=== PATIENT | female | born 1995 | race Caucasian/White ===

== ENCOUNTER 2024-03-30 15:21 | Emergency (ER) | payer OTHER ==
[~2024-03-30] VITALS: Ht 160 cm; Wt 81.8 kg
[2024-03-30 16:03] VITALS: BP 139/84; PULSE 84; RESP 18; TEMP 97.9
[2024-03-30 16:25] LABS: APPEARANCE,URINE HAZY (CLEAR); BILIRUBIN,URINE NEGATIVE (NEGATIVE); COLOR,URINE LIGHT YELLOW (YELLOW); GLUCOSE, URINE (UA) NEGATIVE (NEGATIVE); KETONES,URINE NEGATIVE (NEGATIVE); LEUKOCYTE ESTERASE ,URINE LARGE (NEGATIVE); NITRATE,URINE NEGATIVE (NEGATIVE); OCCULT BLOOD,URINE MODERATE (NEGATIVE); PROTEIN,URINE NEGATIVE (NEGATIVE); SPECIFIC GRAVITIY, URINE 1.011 (1.003-1.030); UROBILINOGEN,URINE <=1.0 mg/dL (<=1.0)
[2024-03-30 16:27] LABS: BASOPHILS % (AUTO) 0.3 % (0.0-2.0); EOSINOPHILS % (AUTO) 2.7 % (1.0-6.0); HEMATOCRIT 41.1 % (36-46); HEMOGLOBIN 13.8 g/dL (12.0-16.0); LYMPHOCYTES # (AUTO) 2.8 K/uL (1.0-4.8); LYMPHOCYTES % (AUTO) 34.6 % (22.0-44.0); MEAN CORPUSCULAR HGB CONC 33.6 G/dL (31.0-37.0); MEAN CORPUSCULAR VOLUME 93 fL (80-100); MONOCYTES # (AUTO) 0.5 K/uL (0.1-1.0); MONOCYTES % (AUTO) 6.6 % (2.0-9.0); NEUTROPHILS # (AUTO) 4.6 K/uL (1.8-7.7); NEUTROPHILS % (AUTO) 55.8 % (40.0-70.0); PLATELET COUNT (AUTO) 278 K/uL (150-450); RED BLOOD CELL COUNT(AUTO) 4.44 MIL/uL (4.00-5.20); RED CELL DISTRIBUTION WIDTH 12.5 % (11.5-14.5); WHITE BLOOD COUNT (AUTO) 8.2 K/uL (4.5-11.0)
[2024-03-30 16:37] LABS: ANION GAP 9 mmol/L (8-16); CALCIUM, TOTAL 9.9 mg/dL (8.8-10.5); CARBON DIOXIDE 25 mmol/L (22-29); CHLORIDE 104 mmol/L (98-107); GLOMERULAR FILTR. RATE CALC > 60 mL/min (>60); GLUCOSE,RANDOM 95 mg/dL (70-110); POTASSIUM 3.6 mmol/L (3.5-5.1); SODIUM SERUM 138 mmol/L (136-145); UREA NITROGEN, BLOOD 9 mg/dL (7-18)
[2024-03-30 16:48] LABS: ALANINE AMINOTRANSFERASE 35 U/L (12-78); ALBUMIN 4.1 g/dL (3.4-5.0); ALKALINE PHOSPHATASE 84 U/L (46-116); ASPARTATE AMINOTRANSFERASE 21 U/L (15-37); BILIRUBIN,TOTAL 0.2 mg/dL (0.1-1.0); HCG,QUANTITATIVE < 1 mIU/mL (0-6); TOTAL PROTEIN, SERUM 8.3 g/dL (6.4-8.2)
[2024-03-30 16:57] LABS: BACTERIA,URINE Few /HPF (None Seen); WBC,URINE 51-100 /HPF (0-5)
== END 2024-03-30 20:56 | disposition left against medical advice (07) ==
LOC: EMS 15:22
DX: N39.0 Urinary tract infection, site not specified (principal); R10.31 Right lower quadrant pain; Z98.890 Other specified postprocedural states
CPT/HCPCS: 80053; 81001; 84702; 85025; 87086; 87186; 99283

== ENCOUNTER 2024-06-09 21:44 | Emergency (ER) | payer OTHER ==
[~2024-06-09] VITALS: Ht 154.9 cm; Wt 68.2 kg
[2024-06-09 22:09] VITALS: TEMP 97.9
[2024-06-09] MEDS: SODIUM CHLORIDE 0.9% 1,000 ML IV ONE (22:55)
[2024-06-09 23:00] LABS: BASOPHILS % (AUTO) 0.3 % (0.0-2.0); HEMATOCRIT 37.7 % (36-46); HEMOGLOBIN 12.6 g/dL (12.0-16.0); LYMPHOCYTES # (AUTO) 2.4 K/uL (1.0-4.8); LYMPHOCYTES % (AUTO) 28.1 % (22.0-44.0); MEAN CORPUSCULAR HGB CONC 33.3 G/dL (31.0-37.0); MEAN CORPUSCULAR VOLUME 93 fL (80-100); MONOCYTES # (AUTO) 0.6 K/uL (0.1-1.0); MONOCYTES % (AUTO) 7.1 % (2.0-9.0); NEUTROPHILS # (AUTO) 5.3 K/uL (1.8-7.7); NEUTROPHILS % (AUTO) 62.5 % (40.0-70.0); PLATELET COUNT (AUTO) 274 K/uL (150-450); RED BLOOD CELL COUNT(AUTO) 4.05 MIL/uL (4.00-5.20); RED CELL DISTRIBUTION WIDTH 12.7 % (11.5-14.5); WHITE BLOOD COUNT (AUTO) 8.6 K/uL (4.5-11.0)
[2024-06-09 23:49] LABS: APPEARANCE,URINE HAZY (CLEAR); BILIRUBIN,URINE NEGATIVE (NEGATIVE); COLOR,URINE LIGHT YELLOW (YELLOW); GLUCOSE, URINE (UA) NEGATIVE (NEGATIVE); KETONES,URINE NEGATIVE (NEGATIVE); LEUKOCYTE ESTERASE ,URINE LARGE (NEGATIVE); NITRATE,URINE NEGATIVE (NEGATIVE); OCCULT BLOOD,URINE LARGE (NEGATIVE); PH,URINE 6.5 (5.0-8.0); PROTEIN,URINE 30-70 mg/dL (NEGATIVE); SPECIFIC GRAVITIY, URINE 1.009 (1.003-1.030); UROBILINOGEN,URINE <=1.0 mg/dL (<=1.0)
[2024-06-09 23:54] LABS: BACTERIA,URINE Moderate /HPF (None Seen); SQUAMOUS EPITHELIAL CELL,UR Few /LPF (None Seen); WBC,URINE 51-100 /HPF (0-5)
[2024-06-09] MEDS: KETOROLAC TROMETHAMINE 30 MG/ML VIAL IVP ONE (23:58)
[2024-06-10] MEDS: CefTRIAXone 1 GM/DEXTROSE 50 ML IV ONE (00:03)
[2024-06-10 00:08] LABS: ANION GAP 7 mmol/L (8-16); CARBON DIOXIDE 27 mmol/L (22-29); CHLORIDE 104 mmol/L (98-107); CREATININE 0.85 mg/dL (0.60-1.30); GLOMERULAR FILTR. RATE CALC > 60 mL/min (>60); GLUCOSE,RANDOM 105 mg/dL (70-110); POTASSIUM 3.6 mmol/L (3.5-5.1); SODIUM SERUM 138 mmol/L (136-145); UREA NITROGEN, BLOOD 17 mg/dL (7-18)
[2024-06-10 01:30] VITALS: BP 138/72; PULSE 82; RESP 20
[2024-06-10] MEDS: OxyCODONE HCL/ACETAMINOPHEN 5-325 MG TABLET PO ONE (01:35)
[2024-06-10] MEDS ORDERED: CIPR500T10 PO (01:36)
== END 2024-06-10 01:55 | disposition home or self-care (01) ==
LOC: EMS 21:49
DX: N39.0 Urinary tract infection, site not specified (principal); Z87.440 Personal history of urinary (tract) infections; Z98.890 Other specified postprocedural states
CPT/HCPCS: 99284; 96361; 96375; 80048; 81001; 84702; 85025; 36415; 87086; 87186; 96365; J1885; J0696

== ENCOUNTER 2024-07-05 09:27 | Inpatient (IN) | payer OTHER ==
[~2024-07-05] VITALS: Ht 162.6 cm; Wt 75.0 kg
[~2024-07-05 09:27] MED LIST: CIPR250T6 PO
[2024-07-05] MEDS ORDERED: 0.9% SODIUM CHLORIDE 10 ML SYRINGE IVP PRN (09:45)
[2024-07-05 10:21] LABS: BASOPHILS % (AUTO) 0.2 % (0.0-2.0); EOSINOPHILS % (AUTO) 0 % (1.0-6.0); HEMOGLOBIN 11.3 g/dL (12.0-16.0); LYMPHOCYTES # (AUTO) 0.4 K/uL (1.0-4.8); LYMPHOCYTES % (AUTO) 3.9 % (22.0-44.0); MEAN CORPUSCULAR HEMOGLOBIN 31.3 pg (26.0-34.0); MEAN CORPUSCULAR HGB CONC 34.2 G/dL (31.0-37.0); MEAN CORPUSCULAR VOLUME 92 fL (80-100); MONOCYTES # (AUTO) 0.7 K/uL (0.1-1.0); MONOCYTES % (AUTO) 6.5 % (2.0-9.0); NEUTROPHILS # (AUTO) 9.8 K/uL (1.8-7.7); PLATELET COUNT (AUTO) 196 K/uL (150-450); RED BLOOD CELL COUNT(AUTO) 3.59 MIL/uL (4.00-5.20); RED CELL DISTRIBUTION WIDTH 12.3 % (11.5-14.5); WHITE BLOOD COUNT (AUTO) 10.9 K/uL (4.5-11.0)
[2024-07-05 10:24] LABS: ANION GAP 12 mmol/L (8-16); CALCIUM, TOTAL 8.4 mg/dL (8.8-10.5); CARBON DIOXIDE 22 mmol/L (22-29); CHLORIDE 102 mmol/L (98-107); CREATININE 0.87 mg/dL (0.60-1.30); GLOMERULAR FILTR. RATE CALC > 60 mL/min (>60); GLUCOSE,RANDOM 128 mg/dL (70-110); POTASSIUM 3.1 mmol/L (3.5-5.1); SODIUM SERUM 136 mmol/L (136-145); UREA NITROGEN, BLOOD 13 mg/dL (7-18)
[2024-07-05] MEDS: CEFEPIME HCL 1 GM in DEXTROSE 5%-WATER 50 ML IV ONE (10:29)
[2024-07-05] MEDS: SODIUM CHLORIDE 0.9% 2,100 ML IV ONE (10:29)
[2024-07-05] MEDS: MORPHINE SULFATE 2 MG/ML SYRINGE IVP ONE ×2 (10:29→14:25)
[2024-07-05 10:32] LABS: TROPONIN I-HIGH SENSITIVITY Less Than 4 ng/L (<51)
[2024-07-05 10:35] LABS: ALANINE AMINOTRANSFERASE 20 U/L (12-78); ALBUMIN 2.9 g/dL (3.4-5.0); ALKALINE PHOSPHATASE 70 U/L (46-116); ASPARTATE AMINOTRANSFERASE 18 U/L (15-37); BILIRUBIN,TOTAL 0.8 mg/dL (0.1-1.0); HCG,QUANTITATIVE 2 mIU/mL (0-6); TOTAL PROTEIN, SERUM 7.5 g/dL (6.4-8.2)
[2024-07-05 10:36] LABS: NEUTROPHILS % (AUTO) 89.4 % (40.0-70.0)
[2024-07-05 10:43] LABS: B-TYPE NATRIURETIC PEPTIDE 17 pg/mL (0-100)
[2024-07-05 10:51] LABS: APPEARANCE,URINE HAZY (CLEAR); BILIRUBIN,URINE NEGATIVE (NEGATIVE); COLOR,URINE YELLOW (YELLOW); GLUCOSE, URINE (UA) NEGATIVE (NEGATIVE); LEUKOCYTE ESTERASE ,URINE LARGE (NEGATIVE); NITRATE,URINE POSITIVE (NEGATIVE); OCCULT BLOOD,URINE MODERATE (NEGATIVE); PROTEIN,URINE 30-70 mg/dL (NEGATIVE); SPECIFIC GRAVITIY, URINE 1.031 (1.003-1.030); UROBILINOGEN,URINE <=1.0 mg/dL (<=1.0)
[2024-07-05] MEDS ORDERED: IOHEXOL 350 MG/ML 100 ML VIAL ONE (10:52)
[2024-07-05] MEDS ORDERED: SODIUM CHLORIDE 0.9% 100 ML ONE (10:52)
[2024-07-05 11:11] LABS: BACTERIA,URINE Many /HPF (None Seen); SQUAMOUS EPITHELIAL CELL,UR Moderate /LPF (None Seen); WBC,URINE 51-100 /HPF (0-5)
[2024-07-05] MEDS: POTASSIUM CHLORIDE 20 MEQ ER TABLET PO ONE (11:26)
[2024-07-05] MEDS: ACETAMINOPHEN 1000 MG/ISO-OSM 100 ML IV ONE (18:28)
[2024-07-05] MEDS ORDERED: MAGNESIUM HYDROXIDE SUSPENSION 30 ML UDCUP PO PRN (20:00)
[2024-07-05] MEDS ORDERED: ZOLPIDEM TARTRATE 5 MG TABLET PO PRN ×2 (20:00→22:30)
[2024-07-05] MEDS ORDERED: BISACODYL 10 MG RECTAL RECTAL SUPPOSITORY PR PRN (20:00)
[2024-07-05] MEDS ORDERED: ONDANSETRON HCL 4 MG/2 ML VIAL IVP PRN ×2 (20:00→22:30)
[2024-07-05] MEDS: SODIUM CHLORIDE 0.9% 1,000 ML IV SCH (21:15)
[2024-07-05] MEDS: CefTRIAXone 1 GM/DEXTROSE 50 ML IV SCH (21:15)
[2024-07-05] MEDS ORDERED: ALBUTEROL SULFATE 2.5 MG/0.5 ML NEB SOLUTION NEB PRN (22:30)
[2024-07-05] MEDS ORDERED: IPRATROPIUM BROMIDE 0.5 MG/2.5 ML NEB SOLUTION NEB PRN (22:30)
[2024-07-05 22:31] VITALS: BP 115/66; PULSE 107; RESP 20; TEMP 98.7
[2024-07-05] MEDS: ACETAMINOPHEN 325 MG TABLET PO PRN (22:56)
[2024-07-05] MEDS: MORPHINE SULFATE 2 MG/ML SYRINGE IVP PRN (22:57)
[2024-07-06] MEDS ORDERED: HEPARIN SODIUM,PORCINE 5,000 UNITS/ML VIAL SQ SCH
[2024-07-06] MEDS: HEPARIN SODIUM,PORCINE 5,000 UNITS/ML VIAL SQ SCH (01:21)
[2024-07-06 03:46] VITALS: BP 97/50; PULSE 71; RESP 20; TEMP 97.6
[2024-07-06 07:59] LABS: ANION GAP 13 mmol/L (8-16); CALCIUM, TOTAL 8.2 mg/dL (8.8-10.5); CARBON DIOXIDE 21 mmol/L (22-29); CHLORIDE 104 mmol/L (98-107); CREATININE 0.73 mg/dL (0.60-1.30); GLOMERULAR FILTR. RATE CALC > 60 mL/min (>60); GLUCOSE,RANDOM 91 mg/dL (70-110); POTASSIUM 3.6 mmol/L (3.5-5.1); SODIUM SERUM 138 mmol/L (136-145); UREA NITROGEN, BLOOD 8 mg/dL (7-18)
[2024-07-06 08:00] VITALS: BP 102/64; PULSE 95; RESP 20; TEMP 98.4
[2024-07-06] MEDS: PANTOPRAZOLE SODIUM 40 MG/VIAL IVP SCH (08:38)
[2024-07-06] MEDS ORDERED: PANTOPRAZOLE SODIUM 40 MG DR TABLET PO SCH (09:00)
[2024-07-06] MEDS: DOCUSATE SODIUM 100 MG/10 ML LIQUID UDCUP PO SCH (09:00)
[2024-07-06 11:45] VITALS: BP 103/59; PULSE 82; RESP 20; TEMP 98.1
[2024-07-06 20:14] VITALS: BP 105/58; PULSE 83; RESP 18; TEMP 98.5
[2024-07-07] VITALS (8 sets, daily range): BP systolic 89–117; BP diastolic 56–80; PULSE 66–84; RESP 17–20; TEMP 97.5–98.4
[2024-07-07] MEDS: OxyCODONE HCL/ACETAMINOPHEN 5-325 MG TABLET PO PRN (01:30)
[2024-07-07 13:42] LABS: BASOPHILS % (AUTO) 0.3 % (0.0-2.0); EOSINOPHILS % (AUTO) 1.2 % (1.0-6.0); HEMATOCRIT 31.1 % (36-46); HEMOGLOBIN 10.4 g/dL (12.0-16.0); LYMPHOCYTES # (AUTO) 1.7 K/uL (1.0-4.8); LYMPHOCYTES % (AUTO) 31.6 % (22.0-44.0); MEAN CORPUSCULAR HEMOGLOBIN 30.8 pg (26.0-34.0); MEAN CORPUSCULAR HGB CONC 33.4 G/dL (31.0-37.0); MEAN CORPUSCULAR VOLUME 93 fL (80-100); MONOCYTES # (AUTO) 0.4 K/uL (0.1-1.0); MONOCYTES % (AUTO) 8.1 % (2.0-9.0); NEUTROPHILS # (AUTO) 3.2 K/uL (1.8-7.7); NEUTROPHILS % (AUTO) 58.8 % (40.0-70.0); PLATELET COUNT (AUTO) 236 K/uL (150-450); RED BLOOD CELL COUNT(AUTO) 3.37 MIL/uL (4.00-5.20); RED CELL DISTRIBUTION WIDTH 12.7 % (11.5-14.5); WHITE BLOOD COUNT (AUTO) 5.5 K/uL (4.5-11.0)
[2024-07-07 13:51] LABS: ANION GAP 11 mmol/L (8-16); CALCIUM, TOTAL 8.7 mg/dL (8.8-10.5); CARBON DIOXIDE 24 mmol/L (22-29); CHLORIDE 104 mmol/L (98-107); CREATININE 0.72 mg/dL (0.60-1.30); GLOMERULAR FILTR. RATE CALC > 60 mL/min (>60); GLUCOSE,RANDOM 100 mg/dL (70-110); POTASSIUM 3.4 mmol/L (3.5-5.1); SODIUM SERUM 139 mmol/L (136-145); UREA NITROGEN, BLOOD 6 mg/dL (7-18)
[2024-07-07 13:56] LABS: ALANINE AMINOTRANSFERASE 26 U/L (12-78); ALBUMIN 2.5 g/dL (3.4-5.0); ALKALINE PHOSPHATASE 72 U/L (46-116); ASPARTATE AMINOTRANSFERASE 22 U/L (15-37); BILIRUBIN,TOTAL 0.4 mg/dL (0.1-1.0); TOTAL PROTEIN, SERUM 7.2 g/dL (6.4-8.2)
[2024-07-08 04:27] VITALS: BP 105/69; PULSE 70; RESP 20; TEMP 98.3
[2024-07-08] MEDS: POTASSIUM CHLORIDE 20 MEQ ER TABLET PO ONE (06:13)
[2024-07-08 07:30] VITALS: BP 100/61; PULSE 66; RESP 18; TEMP 97.8
[2024-07-08] MEDS: BISACODYL 10 MG RECTAL RECTAL SUPPOSITORY PR PRN (10:08)
[2024-07-08] MEDS: MAGNESIUM HYDROXIDE SUSPENSION 30 ML UDCUP PO PRN (10:08)
[2024-07-08 11:19] VITALS: BP 103/64; PULSE 72; RESP 18; TEMP 98
[2024-07-08 16:20] VITALS: BP 100/60; PULSE 68; RESP 18; TEMP 98
[2024-07-08 19:22] VITALS: BP 107/70; PULSE 86; RESP 18; TEMP 97.7
[2024-07-08] MEDS: MINERAL OIL 133 ML ENEMA PR PRN (21:56)
[2024-07-09 00:54] VITALS: BP 124/76; PULSE 76; RESP 18; TEMP 98.2
[2024-07-09 04:10] VITALS: BP 131/74; PULSE 68; RESP 18; TEMP 98.1
[2024-07-09 07:15] VITALS: BP 117/63; PULSE 66; RESP 18; TEMP 97.3
[2024-07-09 07:54] LABS: ANION GAP 11 mmol/L (8-16); CALCIUM, TOTAL 8.7 mg/dL (8.8-10.5); CARBON DIOXIDE 24 mmol/L (22-29); CHLORIDE 102 mmol/L (98-107); CREATININE 0.62 mg/dL (0.60-1.30); GLOMERULAR FILTR. RATE CALC > 60 mL/min (>60); GLUCOSE,RANDOM 96 mg/dL (70-110); POTASSIUM 3.6 mmol/L (3.5-5.1); SODIUM SERUM 136 mmol/L (136-145); UREA NITROGEN, BLOOD 9 mg/dL (7-18)
[2024-07-09 11:11] VITALS: BP 116/68; PULSE 70; RESP 18; TEMP 98
[2024-07-09] MEDS: PHENAZOPYRIDINE HCL 200 MG TABLET PO SCH (15:41)
[2024-07-09 19:54] VITALS: BP_SYST 118; BP_SYST 155; BP_DIAS 66; BP_DIAS 76; PULSE 74; PULSE 99; RESP 18; TEMP 97.7; TEMP 98.2
[2024-07-10] VITALS (7 sets, daily range): BP systolic 105–122; BP diastolic 56–75; PULSE 64–102; RESP 18–19; TEMP 98–98.8
[2024-07-10] MEDS ORDERED: SODIUM CHLORIDE 0.9% 250 ML IV ONE (03:34)
[2024-07-10] MEDS: IMIPENEM/CILASTATIN SODIUM 500 MG in SODIUM CHLORIDE 0.9% 100 ML IV SCH (03:39)
[2024-07-10] MEDS ORDERED: RINGERS SOLUTION,LACTATED 1,000 ML IV ONE (11:24)
[2024-07-10] MEDS ORDERED: PROPOFOL 1% 20 ML VIAL IVP ONE (12:00)
[2024-07-10] MEDS ORDERED: FentaNYL CITRATE PF 100 MCG/2 ML VIAL IVP ONE (12:00)
[2024-07-10] MEDS ORDERED: SUGAMMADEX SODIUM 200 MG/2 ML VIAL IVP ONE (12:00)
[2024-07-10] MEDS ORDERED: ROCURONIUM BROMIDE 10 MG/ML 5 ML VIAL IVP ONE (12:00)
[2024-07-10] MEDS ORDERED: KETOROLAC TROMETHAMINE 60 MG/2 ML VIAL IM ONE (12:00)
[2024-07-10] MEDS ORDERED: 0.9% SODIUM CHLORIDE 10 ML VIAL IVP ONE (12:00)
[2024-07-10] MEDS ORDERED: ACETAMINOPHEN/ISO-OSM 1000 MG/100 ML BOTTLE IV ONE (12:00)
[2024-07-10] MEDS ORDERED: LIDOCAINE/PF 2% 5 ML VIAL IM ONE (12:00)
[2024-07-10] MEDS ORDERED: ONDANSETRON HCL 4 MG/2 ML VIAL IVP ONE (12:00)
[2024-07-10] MEDS ORDERED: DEXAMETHASONE SOD PHOS 4 MG/ML VIAL IVP ONE (12:00)
[2024-07-10] MEDS ORDERED: MIDAZOLAM HCL 2 MG/2 ML VIAL IVP ONE (12:00)
[2024-07-10] MEDS ORDERED: SODIUM CL IRRIG SOLN BAG 3,000 ML IRRIG ONE ×2 (12:25→13:37)
[2024-07-10] MEDS ORDERED: IOHEXOL 240 MG/ML 20 ML VIAL ONE (12:26)
[2024-07-10] MEDS ORDERED: HYDROmorphone HCL 2 MG/ML SYRINGE IVP PRN (12:30)
[2024-07-10] MEDS ORDERED: MEPERIDINE-PF 25 MG/ML VIAL IVP PRN (12:30)
[2024-07-10] MEDS ORDERED: FentaNYL CITRATE PF 100 MCG/2 ML VIAL ONE (14:14)
[2024-07-10] MEDS: FentaNYL CITRATE PF 100 MCG/2 ML VIAL IVP PRN (14:15)
[2024-07-10] MEDS: IOHEXOL 240 MG/ML 20 ML VIAL ONE (15:11)
[2024-07-10] MEDS: OXYGEN THERAPY IH SCH (21:14)
[2024-07-11 05:50] VITALS: BP 118/70; PULSE 81; RESP 18; TEMP 97.9
[2024-07-11 08:54] VITALS: BP 99/55; PULSE 82; RESP 16; TEMP 98
[2024-07-11 13:06] VITALS: BP 111/59; PULSE 72; RESP 18; TEMP 98.1
[2024-07-11 16:23] VITALS: BP 125/68; PULSE 94; RESP 18; TEMP 98.3
[2024-07-11 19:58] VITALS: BP 122/68; PULSE 63; RESP 18; TEMP 98
[2024-07-12 06:04] VITALS: BP 137/80; PULSE 60; RESP 20; TEMP 98.3
[2024-07-12 08:40] VITALS: BP 122/78; PULSE 64; RESP 20; TEMP 98.3
[2024-07-12] MEDS ORDERED: ERTA1VIA9 IVP (10:18)
[2024-07-12 11:49] LABS: CREATININE 0.77 mg/dL (0.60-1.30); GLOMERULAR FILTR. RATE CALC > 60 mL/min (>60)
[2024-07-12] MEDS ORDERED: ERTAPENEM SODIUM 1 GM VIAL IV ONE (12:00)
[2024-07-12] MEDS: ERTAPENEM SODIUM 1 GM in SODIUM CHLORIDE 0.9% 50 ML IV ONE (12:47)
[2024-07-12 15:45] VITALS: BP 135/93; PULSE 82; RESP 18; TEMP 98.1
== END 2024-07-12 15:35 | disposition home health service (06) | DRG 466 ==
LOC: EMS 09:28 → EDH 19:58 → 5S 21:36 → 4E 07-11 18:15
PROVIDERS: ADMIT Hospitalist; ATTEND Hospitalist
PROC: 0TJB8ZZ Inspection of Bladder, Via Natural or Artificial Opening Endoscopic (ICD-10-PCS; principal; 2024-07-10 12:30)
DX: T83.592A Infection and inflammatory reaction due to indwelling ureteral stent, initial encounter (principal); A41.9 Sepsis, unspecified organism; E87.20 Acidosis, unspecified; N13.6 Pyonephrosis; I95.9 Hypotension, unspecified; J98.11 Atelectasis; Z16.24 Resistance to multiple antibiotics; Y83.8 Other surgical procedures as the cause of abnormal reaction of the patient, or of later complication, without mention of misadventure at the time of the procedure; Z16.12 Extended spectrum beta lactamase (ESBL) resistance; B96.20 Unspecified Escherichia coli [E. coli] as the cause of diseases classified elsewhere; Z87.442 Personal history of urinary calculi; Z79.899 Other long term (current) drug therapy; Y92.89 Other specified places as the place of occurrence of the external cause
CPT/HCPCS: 36245; 36569; 71045; 74177; 76937; 80048; 80053; 81001; 82565; 83605; 83880; 84145; 84484; 84702; 85025; 87040; 87086; 87186; 93005; 99285; C9113; G0378; J0131; J0692; J0696; J0743; J1100; J1335; J1644; J1885; J2250; J2270; J2405; J2704; J3010; J3490; J7030; J7050; J7060; J7120; Q9966; 36415-L1; 36415-TC

== ENCOUNTER 2025-06-04 09:38 | Emergency (ER) | payer OTHER ==
[~2025-06-04] VITALS: Ht 162.6 cm; Wt 72.7 kg
[~2025-06-04 09:38] MED LIST changes: -CIPR250T6 PO; +ERTA1VIA9 IVP
[2025-06-04 09:51] VITALS: BP 114/84; PULSE 89; RESP 18; TEMP 98.2; O2SAT 99
[2025-06-04] MEDS ORDERED: DIPH-1243 PO (10:45)
[2025-06-04] MEDS ORDERED: PRED-554 PO (10:45)
== END 2025-06-04 11:07 | disposition home or self-care (01) ==
LOC: EMS 09:38
DX: R21 Rash and other nonspecific skin eruption (principal); Z98.890 Other specified postprocedural states
CPT/HCPCS: 99283; J7512

== ENCOUNTER 2025-07-29 07:20 | Emergency (ER) | payer OTHER ==
[~2025-07-29] VITALS: Ht 162.6 cm; Wt 75.0 kg
[~2025-07-29 07:20] MED LIST changes: +DIPH-1243 PO; -ERTA1VIA9 IVP; +PRED-554 PO
[2025-07-29 07:24] VITALS: TEMP 98.1
[2025-07-29] MEDS ORDERED: IBUP-1492 PO (08:05)
[2025-07-29 08:18] VITALS: BP 129/88; PULSE 71; RESP 18; O2SAT 99
== END 2025-07-29 08:32 | disposition home or self-care (01) ==
LOC: EMS 07:22
DX: Z48.00 Encounter for change or removal of nonsurgical wound dressing (principal); Z98.891 History of uterine scar from previous surgery; Z98.51 Tubal ligation status; Z98.890 Other specified postprocedural states
CPT/HCPCS: 99283; Z7502